=== PATIENT | male | born 1960 | race Caucasian/White ===

== ENCOUNTER 2017-10-28 10:20 | Emergency (ER) | payer BC ==
[~2017-10-28] VITALS: Ht 180.3 cm; Wt 219.5 kg
[2017-10-28] MEDS ORDERED: IBUPROFEN 800800 M1 PO (10:29)
[2017-10-28 12:58] LABS: HEMATOCRIT 42.1 % (42.0-52.0); HEMOGLOBIN 14.1 gm/dL (14.0-18.0); MCH 30.9 pg (26.0-34.0); MCHC 33.5 g/dL (28.0-37.0); MCV 92.4 fL (80.0-100.0); MPV 8.2 fl. (7.2-11.1); NUCLEATED RBCS 0 /100WBC; PLATELET COUNT* 174 thou/uL (150-400); RBC 4.55 mil/uL (4.50-6.00); RDW-CV 13.1 % (10.5-14.5)
[2017-10-28 13:05] LABS: CALCIUM 8.4 mg/dL (8.5-10.1); POTASSIUM 4.2 mmol/L (3.5-5.1)
[2017-10-28 13:10] LABS: ALBUMIN 3.4 g/dL (3.4-5.0); TOTAL BILIRUBIN 0.4 mg/dL (<0.1-1.0); TOTAL PROTEIN 7.3 g/dL (6.4-8.2)
[2017-10-28 13:18] LABS: ABSOLUTE LYMPHOCYTES 1.1 thou/uL (0.8-5.3); ABSOLUTE MONOCYTES 0.1 thou/uL (0.0-1.2); ABSOLUTE NEUTROPHILS 8.8 thou/uL (1.6-8.1); ANISOCYTOSIS 1+; PLATELET ESTIMATE ADEQUATE; POIKILOCYTOSIS 1+
[2017-10-28] MEDS ORDERED: NORCO 5-325 TA1 EACH PO (13:51)
[2017-10-28 14:30] VITALS: BP 154/79
== END 2017-10-28 14:30 | disposition home or self-care (01) ==
LOC: M.ERS 10:20
PROVIDERS: Nurse Practitioner Family
DX: S43.005A Unspecified dislocation of left shoulder joint, initial encounter (principal); M25.551 Pain in right hip; G89.29 Other chronic pain; F17.210 Nicotine dependence, cigarettes, uncomplicated; W06.XXXA Fall from bed, initial encounter; Y93.89 Activity, other specified; Y92.89 Other specified places as the place of occurrence of the external cause; Y99.8 Other external cause status